=== PATIENT | male | born 1985 | race Hispanic/Latino ===

== ENCOUNTER 2021-06-02 13:03 | Emergency (ER) | payer SELFPAY ==
[~2021-06-02] VITALS: Ht 160 cm; Wt 68.0 kg
[2021-06-02 13:36] LABS: BASOPHILS % 0.2 % (0.0-1.0); EOSINOPHILS # (AUTO) 0.1 (0.0-0.4); EOSINOPHILS % 0.9 % (0.0-6.0); HEMATOCRIT 46.4 % (38.2-49.6); HEMOGLOBIN 15.4 g/dL (14.0-18.0); LYMPHOCYTES # (AUTO) 4.9 (1.0-3.2); LYMPHOCYTES % 42.6 % (18.0-39.1); MEAN CORPUSCULAR HEMOGLOBIN 29.2 pg (28-32); MEAN CORPUSCULAR HGB CONC 33.2 g/dL (31-35); MEAN CORPUSCULAR VOLUME 87.9 fL (81-99); MONOCYTES # (AUTO) 0.7 (0.2-0.8); MONOCYTES % 6.4 % (4.4-11.3); NEUTROPHILS # (AUTO) 5.7 (2.1-6.9); NEUTROPHILS % 49.6 % (38.7-80.0); PLATELET COUNT 268 x10e3/uL (140-360); RED BLOOD COUNT 5.28 x10e6/uL (4.3-5.7); RED CELL DISTRIBUTION WIDTH 14.1 % (11.7-14.4)
[2021-06-02 13:58] LABS: ANION GAP 15.2 mmol/L (8-16); CALCIUM 8.6 mg/dL (8.4-10.2); CREATININE, SERUM 0.78 mg/dL (0.72-1.25); POTASSIUM 4.2 mmol/L (3.5-5.1)
[2021-06-02] MEDS ORDERED: SODIUM CHLORIDE 0.9% 50ML 50 ML ONE (14:12)
[2021-06-02] MEDS ORDERED: IOPAMIDOL 370 MG/ML 200 ML INFUS..BTL INJ ONE (14:12)
[2021-06-02] MEDS ORDERED: CEPHALEXIN500 MG PO (15:36)
[2021-06-02 16:26] VITALS: BP 135/75
== END 2021-06-02 16:00 | disposition home or self-care (01) ==
LOC: ER 13:35
DX: M79.89 Other specified soft tissue disorders (principal)
CPT/HCPCS: 36415; 71260; 80048; 85025; 93971; 99284; Q9967

== ENCOUNTER 2022-06-09 20:35 | Emergency (ER) | payer SELFPAY ==
[~2022-06-09] VITALS: Ht 160 cm; Wt 68.0 kg
[~2022-06-09 20:35] MED LIST: CEPHALEXIN500 MG PO
[2022-06-09] MEDS ORDERED: HYDROCODONE/APAP 10MG-325MG TAB PO ONE (21:00)
== END 2022-06-09 21:42 | disposition home or self-care (01) ==
LOC: ER 20:40
DX: M79.642 Pain in left hand (principal); M79.89 Other specified soft tissue disorders
CPT/HCPCS: 99283

== ENCOUNTER 2022-12-06 18:50 | Emergency (ER) | payer SELFPAY ==
[~2022-12-06] VITALS: Ht 160 cm; Wt 68.0 kg
[2022-12-06 19:57] LABS: AMPHETAMINES SCREEN,URINE NEGATIVE (NEGATIVE); BENZODIAZEPINES SCREEN,URINE NEGATIVE (NEGATIVE); PHENCYCLIDINE SCREEN,URINE NEGATIVE (NEGATIVE)
== END 2022-12-06 20:08 | disposition home or self-care (01) ==
LOC: ER 19:29
DX: M79.642 Pain in left hand (principal); R60.9 Edema, unspecified; F14.10 Cocaine abuse, uncomplicated
CPT/HCPCS: 80307; 99283